=== PATIENT | male | born 1975 | race African-American/Black ===

== ENCOUNTER 2017-11-03 20:27 | Emergency (ER) | payer OTHER ==
[~2017-11-03] VITALS: Ht 182.9 cm; Wt 98.9 kg
[2017-11-03 20:39] VITALS: BP 122/77
[2017-11-03] MEDS ORDERED: NORFLEX100 MG PO (21:09)
[2017-11-03] MEDS ORDERED: NAPROSYN500 MG PO (21:09)
== END 2017-11-03 21:21 | disposition home or self-care (01) ==
LOC: ER 20:27
DX: S16.1XXA Strain of muscle, fascia and tendon at neck level, initial encounter (principal); S39.012A Strain of muscle, fascia and tendon of lower back, initial encounter; V89.2XXA Person injured in unspecified motor-vehicle accident, traffic, initial encounter; Y93.89 Activity, other specified; Y92.89 Other specified places as the place of occurrence of the external cause; Y99.8 Other external cause status

== ENCOUNTER → 2019-01-23 | Outpatient (CLI) | payer OTHER ==
[~2019-01-23] MED LIST: NAPROSYN500 MG PO; NORFLEX100 MG PO
== END ==
LOC: RAD 08:57
DX: D86.89 Sarcoidosis of other sites (principal)